=== PATIENT | female | born 1995 | race Two or more races ===

== ENCOUNTER 2021-03-30 18:37 | Emergency (ER) | payer OTHER ==
[~2021-03-30] VITALS: Ht 165.1 cm; Wt 56.8 kg
[2021-03-30] MEDS ORDERED: ONDANSETRON 4MG ODT 4TABLET STARTPACK. PO ONE (19:39)
--- NOTE | 2021-03-30 19:59 | PHYS DOC ---
Past History Past Surgical History: No Surgical History (RICKY FRANKLIN APRN) Alcohol Use: Rarely (RICKY FRANKLIN APRN) General Adult EDM: Chief Complaint: VAGINAL PROBLEM HPI: HPI: Patient is a 25-year-old female who presents with lower abdominal pain. "We had sex earlier and afterwards I felt like someone had taken a hot iron and shoved it in my lower stomach up to my ribs". "I had a miscarriage 2 weeks ago". Denies bleeding, discharge. Patient states "I called EMS because the pain was not stopping". EMS gave 4 mg of Zofran for nausea. Patient denies taking anything for pain prior to arrival. (RICKY FRANKLIN APRN) Review of Systems: Review of Systems: Constitutional: Denies fever or chills Eyes: Denies change in visual acuity HENT: Denies nasal congestion or sore throat Respiratory: Denies cough or shortness of breath Cardiovascular: Denies chest pain or edema GI: Reports lower abdominal pain, nausea. Denies vomiting, bloody stools or diarrhea : Denies dysuria. Denies discharge or odor. Denies vaginal bleeding. Musculoskeletal: Denies back pain or joint pain Integument: Denies rash Neurologic: Denies headache, focal weakness or sensory changes Endocrine: Denies polyuria or polydipsia Lymphatic: Denies swollen glands Psychiatric: Denies depression or anxiety (RICKY FRANKLIN APRN) Allergies: Allergies: Allergies Coded Allergies Type Severity Reaction Last Updated Verified No Known Drug Allergies 03/30/21 No (RICKY FRANKLIN APRN) Physical Exam: PE: Constitutional: Well developed, well nourished, no acute distress, non-toxic michael earance. [] HENT: Normocephalic, atraumatic, bilateral external ears normal, oropharynx moist, no oral exudates, nose normal. [] Eyes: PERRLA, EOMI, conjunctiva normal, no discharge. [] Neck: Normal range of motion, no tenderness, supple, no stridor. [] Cardiovascular:Heart rate regular rhythm, no murmur [] Lungs & Thorax: Bilateral breath sounds clear to auscultation [] Abdomen: Bowel sounds normal, soft, lower abdominal tenderness Skin: Warm, dry, no erythema, no rash. [] Back: No tenderness, no CVA tenderness. [] Extremities: No tenderness, no cyanosis, no clubbing, ROM intact, no edema. [] Neurologic: Alert and oriented X 3, normal motor function, normal sensory funct ion, no focal deficits noted. [] Psychologic: Affect normal, judgement normal, mood normal. [] (RICKY FRANKLIN APRN) Current Patient Data: Vital Signs: Vital Signs Date Time Temp Pulse Resp B/P (MAP) Pulse Ox O2 Delivery O2 Flow Rate FiO2 03/30/21 18:39 98.2 72 16 123/78 100 Room Air (RICKY FRANKLIN APRN) EKG: EKG: [] (RICKY FRANKLIN APRN) Radiology/Procedures: Radiology/Procedures: []EXAM: Abdomen and pelvis CT without intravenous contrast. HISTORY: Pain. TECHNIQUE: Computed tomographic images of the abdomen and pelvis were obtained without contrast. Multiplanar reformatting was performed. *One or more of the following individualized dose reduction techniques were utilized for this examination: 1. Automated exposure control. 2. Adjustment of the mA and/or kV according to patient size. 3. Use of iterative reconstruction technique. COMPARISON: None. FINDINGS: Evaluation of the lower thorax demonstrates groundglass opacity within the posterior dependent portions of both lower lobes likely due to atelectasis. There is no consolidation, pleural effusion or pneumothorax. The heart is normal in size. No hepatic lesion is seen. The gallbladder, pancreas, spleen, adrenal glands and kidneys are unremarkable. There is no appendicitis. There is no bowel obstruction. There is no abnormal bowel wall thickening. The uterus is unremarkable. There are bilateral ovarian follicles and there is a small amount of pelvic free fluid. There is a suspected dominant left ovarian follicle, difficult to measure and absence of contrast. There is fluid within the vagina. The bladder is unremarkable. The aorta is normal in caliber. There are prominent lymph nodes throughout the root of mesentery and pericecal distribution. This can be physiologic in a patient of this age. IMPRESSION: 1. No convincing acute abdominal or pelvic finding. 2. Suspected radiology dominant left ovarian follicle, difficult to measure in the absence of contrast. There is also a small physiologic amount of pelvic free fluid. Electronically signed by: Samara Li MD (03/30/2021 8:38 PM) [facility] (RICKY FRANKLIN APRN) Heart Score: C/O Chest Pain: No Risk Factors: Risk Factors: DM, Current or recent (<one month) smoker, HTN, HLP, family history of CAD, obesity. Risk Scores: Score 0 - 3: 2.5% MACE over next 6 weeks - Discharge Home Score 4 - 6: 20.3% MACE over next 6 weeks - Admit for Clinical Observation Score 7 - 10: 72.7% MACE over next 6 weeks - Early Invasive Strategies (RICKY FRANKLIN APRN) Course & Med Decision Making: Course & Med Decision Making Pertinent Labs and Imaging studies reviewed. (See chart for details) [] 25-year-old female presents with lower abdominal pain shot up to her bellybutton. Patient reports that she had a miscarriage 2 weeks ago. Patient had sex this afternoon and that is when the pain started. Patient reports taking a bath and pain not subsiding. Patient called EMS. Patient is denying vaginal discharge, bleeding, odor. Patient was given Zofran from EMS. Patient is reporting pain. Patient given 5/[address] of abdomen and pelvis ordered. Patient is hemodynamically stable. CT of abdomen pelvis is negative for any acute abnormalities. On reassessment patient states that her pain is under control denies nausea. Instructed patient to follow-up with HEALTHCARE EDUCATOR for further management. Patient sent with the CT report. Patient is hemodynamically stable on discharge. Patient's impression of active discharge plan. (RICKY FRANKLIN APRN) Dragon Disclaimer: Dragon Disclaimer: This electronic medical record was generated, in whole or in part, using a voice recognition dictation system. (RICKY FRANKLIN APRN) Attending Co-Sign The patient was seen and interviewed as well as examined at the bedside. The chart was reviewed. The case was discussed. Agree with the plan of care. (JEROMY CUEVAS DO) Departure Departure: Impression: Primary Impression: Lower abdominal pain Disposition: 01 HOME / SELF CARE / HOMELESS Condition: STABLE Referrals: PCP,ANGELINA (PCP) Patient Instructions: Abdominal Pain, [id number] Additional Instructions: You were seen in the emergency room for lower abdominal pain. You were given hydrocodone and Zofran in the ED. CT of your abdomen and pelvis was ordered which was negative for any acute abnormalities. Please make an appointment with your HEALTHCARE EDUCATOR for a follow-up appointment for further testing and management. Ibuprofen and Tylenol at home for discomfort. Return to emergency room with worsening symptoms or concerns EMERGENCY DEPARTMENT GENERAL DISCHARGE INSTRUCTIONS Thank you for coming to [facility] (ED) today and trusting us with you care. We trust that you had a positivie experience in our Emergency Department. If you wish to speak to the department management, you may call the director at [phone]. YOUR FOLLOW UP INSTRUCTIONS ARE FOLLOWS: 1. Do you have a private Doctor? If you do not have a private doctor, please ask for a resource list of physicians or clinics that may be able to assist you with follow up care. 2. The Emergency Physician has interpreted your x-rays. The X-Ray specialist will also review them. If there is a change in the findings, you will be notified in 48 hours when at all possible. 3. A lab test or culture has been done, your results will be reviewed and you will be notified if you need a change in treatment. ADDITIONAL INSTRUCTIONS AND INFORMATION: 1. Your care today has been supervised by a physician who is specially trained in emergency care. Many problems require more than one evaluation for a complete diagnosis and treatment. We recommend that you schedule your follow up appointment as recommended to ensure complete treatment of you illness or injury. If you are unable to obtain follow up care and continue to have a problem, or if your condition worsens, we recommend that you return to the ED. 2. We are not able to safely determine your condition over the phone nor are we able to give sound medical advice over the phone. For these safety reasons, if you call for medical advice we will ask you to come to the ED for further evaluation. 3. If you have any questions regarding these discharge instructions please call the ED at [phone]. SAFETY INFORMATION: In the interest of safety, wellness, and injury prevention; we encourage you to wear your sealbelt, if you smoke; quite smoking, and we encourage family to use a protective helmet for bicycling and other sporting events that present an increased risk for head injury. IF YOUR SYMPTOMS WORSEN OR NEW SYMPTOMS DEVELOP, OR YOU HAVE CONCERNS ABOUT YOUR CONDITION; OR IF YOUR CONDITION WORSENS WHILE YOU ARE WAITING FOR YOUR FOLLOW UP APPOINTMENT; EITHER CONTACT YOUR PRIMARY CARE DOCTOR, THE PHYSICIAN WHOSE NAME AND NUMBER YOU WERE GIVEN, OR RETURN TO THE ED IMMEDIATELY. RICKY FRANKLIN APRN Mar 30, 2021 19:59 JEROMY CUEVAS DO Mar 31, 2021 13:30
[2021-03-30] MEDS ORDERED: HYDROcodone/APAP 5/325MG 1 TAB TABLET PO ONE (20:00)
[2021-03-30] MEDS ORDERED: ONDANSETRON ODT 4 MG TAB.RAPDIS PO ONE (20:15)
[2021-03-30 20:41] VITALS: BP 139/76
--- NOTE | 2021-03-30 20:41 | RAD ---
EXAM: Abdomen and pelvis CT without intravenous contrast. HISTORY: Pain. TECHNIQUE: Computed tomographic images of the abdomen and pelvis were obtained without contrast. Mult iplanar reformatting was performed. *One or more of the following individualized dose reduction techniques were utilized for this examina tion: 1. Automated exposure control. 2. Adjustment of the mA and/or kV according to patient size. 3. Use of iterative reconstruction technique. COMPARISON: None. FINDINGS: Evaluation of the lower thorax demonstrates groundglass opacity within the posterior depend ent portions of both lower lobes likely due to atelectasis. There is no consolidation, pleural effusi on or pneumothorax. The heart is normal in size. No hepatic lesion is seen. The gallbladder, pancreas , spleen, adrenal glands and kidneys are unremarkable. There is no appendicitis. There is no bowel obstruction. There is no abnormal bowel wall thickening. The uterus is unremarkable. There are bilateral ovarian follicles and there is a small amount of pelv ic free fluid. There is a suspected dominant left ovarian follicle, difficult to measure and absence of contrast. There is fluid within the vagina. The bladder is unremarkable. The aorta is normal in caliber. There are prominent lymph nodes throughout the root of mesentery and pericecal distribution. This can be physiologic in a patient of this age. IMPRESSION: 1. No convincing acute abdominal or pelvic finding. 2. Suspected radiology dominant left ovarian follicle, difficult to measure in the absence of contras t. There is also a small physiologic amount of pelvic free fluid. Electronically signed by: Samara Li MD (03/30/2021 8:38 PM) [facility]
== END 2021-03-30 21:05 | disposition home or self-care (01) ==
LOC: ER 18:37
DX: R10.30 Lower abdominal pain, unspecified (principal)
CPT/HCPCS: 74176; 99284; Q0162

== ENCOUNTER → 2021-05-18 | Emergency (ER) | payer OTHER ==
[~2021-05-18] MED LIST: CEPH500T PO; CEPHALEXIN 250 MG CAPSULE PO ONE; IV NORMAL SALINE 1,000ML 1,000 ML IV ONE
--- NOTE | 2021-05-18 19:46 | PHYS DOC ---
Past History Past Surgical History: No Surgical History (NEGRITO BLANCHARD APRN) Alcohol Use: Rarely (NEGRITO BLANCHARD APRN) General Adult EDM: Chief Complaint: VAGINAL PROBLEM HPI: HPI: Patient is a 25-year-old female who presents to the ER with vaginal bleeding and . Patient states that she is approximately 6 weeks . LMP:. Patient is with 3 miscarriages. Patient states that she has had light vaginal spotting x2 days, this morning she had some cramping but that resolved. She states that 1 hour ago she started having heavier bright red bleeding. No clots. No recent intercourse. Patient denies any pain. Patient also denies nausea, vomiting, lightheadedness. She is not saturating any pads. Her OB is Dr. Muller. (NEGRITO BLANCHARD APRN) Review of Systems: Review of Systems: 14 body systems of the review of systems have been reviewed. See HPI for pertinent positive and negative responses, otherwise all other systems are negative, nonpertinent or noncontributory (NEGRITO BLANCHARD APRN) Current Medications: Current Meds: Current Medications Medications (Trade) Dose Ordered Sig/Adrián Start Time Stop Time Status Last Admin Dose Admin Sodium Chloride 1,000 ml @ 1,000 mls/hr 1X ONCE 05/18/21 19:15 05/18/21 20:14 (NEGRITO BLANCHARD APRN) Allergies: Allergies: Allergies Coded Allergies Type Severity Reaction Last Updated Verified No Known Drug Allergies 03/30/21 No (NEGRITO BLANCHARD APRN) Physical Exam: PE: Constitutional: Well developed, well nourished, no acute distress, non-toxic appearance. [] HENT: Normocephalic, atraumatic, bilateral external ears normal, oropharynx moist, no oral exudates, nose normal. [] Eyes: PERRL, EOMI, conjunctiva normal, no discharge. [] Neck: Normal range of motion, no stridor Cardiovascular:Heart rate regular rhythm, no murmur [] Lungs & Thorax: Bilateral breath sounds clear to auscultation [] Abdomen: Bowel sounds normal, soft, no tenderness, no masses, no pulsatile masses. [] Skin: Warm, dry, no erythema, no rash. [] Back: Normal range of motion Extremities: No tenderness, no cyanosis, no clubbing, ROM intact, no edema. [] Neurologic: Alert and oriented X 3, normal motor function, normal sensory function, no focal deficits noted. [] Psychologic: Affect normal, judgement normal, mood normal. [] (NEGRITO BLANCHARD APRN) Current Patient Data: Labs: Laboratory Tests Test 05/18/21 20:50 05/18/21 21:10 05/18/21 21:33 White Blood Count 3.9 x10^3/uL Red Blood Count 3.86 x10^6/uL Hemoglobin 11.4 g/dL Hematocrit 34.9 % Mean Corpuscular Volume 90 fL Mean Corpuscular Hemoglobin 29 pg Mean Corpuscular Hemoglobin Concent 33 g/dL Red Cell Distribution Width 13.7 % Platelet Count 234 x10^3/uL Neutrophils (%) (Auto) 49 % Lymphocytes (%) (Auto) 36 % Monocytes (%) (Auto) 13 % Eosinophils (%) (Auto) 2 % Basophils (%) (Auto) 0 % Neutrophils # (Auto) 1.9 x10^3uL Lymphocytes # (Auto) 1.4 x10^3/uL Monocytes # (Auto) 0.5 x10^3/uL Eosinophils # (Auto) 0.1 x10^3/uL Basophils # (Auto) 0.0 x10^3/uL Maternal Serum HCG Beta Subunit 55 mIU/mL Sodium Level 138 mmol/L Potassium Level 3.7 mmol/L Chloride Level 102 mmol/L Carbon Dioxide Level 27 mmol/L Anion Gap 9 Blood Urea Nitrogen 19 mg/dL Creatinine 0.7 mg/dL Estimated GFR (Cockcroft-Gault) 102.8 BUN/Creatinine Ratio 27 Glucose Level 83 mg/dL Calcium Level 8.9 mg/dL Total Bilirubin 0.2 mg/dL Aspartate Amino Transf (AST/SGOT) 34 U/L Alanine Aminotransferase (ALT/SGPT) 34 U/L Alkaline Phosphatase 64 U/L Total Protein 8.7 g/dL Albumin 3.8 g/dL Albumin/Globulin Ratio 0.8 Urine Collection Type Unknown Urine Color Yellow Urine Clarity Hazy Urine pH 6.0 Urine Specific [place] 1.015 Urine Protein Neg Urine Glucose (UA) Neg mg/dL Urine Ketones (Stick) Neg mg/dL Urine Blood Large Urine Nitrite Neg Urine Bilirubin Neg Urine Urobilinogen Dipstick 0.2 mg/dL Urine Leukocyte Esterase Small Urine RBC 3-5 /HPF Urine WBC 5-10 /HPF Urine Squamous Epithelial Cells Mod /LPF Urine Bacteria Mod /HPF Bedside Urine HCG, Qualitative hcg positive Current Medications Medications (Trade) Dose Ordered Sig/Adrián Route PRN Reason Start Time Stop Time Status Last Admin Dose Admin Sodium Chloride 1,000 ml @ 1,000 mls/hr 1X ONCE IV 05/18/21 19:15 05/18/21 20:14 DC 05/18/21 19:15 Laboratory Tests Test 05/18/21 20:50 05/18/21 21:33 White Blood Count 3.9 x10^3/uL Red Blood Count 3.86 x10^6/uL Hemoglobin 11.4 g/dL Hematocrit 34.9 % Mean Corpuscular Volume 90 fL Mean Corpuscular Hemoglobin 29 pg Mean Corpuscular Hemoglobin Concent 33 g/dL Red Cell Distribution Width 13.7 % Platelet Count 234 x10^3/uL Neutrophils (%) (Auto) 49 % Lymphocytes (%) (Auto) 36 % Monocytes (%) (Auto) 13 % Eosinophils (%) (Auto) 2 % Basophils (%) (Auto) 0 % Neutrophils # (Auto) 1.9 x10^3uL Lymphocytes # (Auto) 1.4 x10^3/uL Monocytes # (Auto) 0.5 x10^3/uL Eosinophils # (Auto) 0.1 x10^3/uL Basophils # (Auto) 0.0 x10^3/uL Maternal Serum HCG Beta Subunit 55 mIU/mL Sodium Level 138 mmol/L Potassium Level 3.7 mmol/L Chloride Level 102 mmol/L Carbon Dioxide Level 27 mmol/L Anion Gap 9 Blood Urea Nitrogen 19 mg/dL Creatinine 0.7 mg/dL Estimated GFR (Cockcroft-Gault) 102.8 BUN/Creatinine Ratio 27 Glucose Level 83 mg/dL Calcium Level 8.9 mg/dL Total Bilirubin 0.2 mg/dL Aspartate Amino Transf (AST/SGOT) 34 U/L Alanine Aminotransferase (ALT/SGPT) 34 U/L Alkaline Phosphatase 64 U/L Total Protein 8.7 g/dL Albumin 3.8 g/dL Albumin/Globulin Ratio 0.8 Bedside Urine HCG, Qualitative hcg positive Current Medications Medications (Trade) Dose Ordered Sig/Adrián Route PRN Reason Start Time Stop Time Status Last Admin Dose Admin Sodium Chloride 1,000 ml @ 1,000 mls/hr 1X ONCE IV 05/18/21 19:15 05/18/21 20:14 DC 05/18/21 19:15 (NEGRITO BLANCHARD APRN) EKG: EKG: [] (NEGRITO BLANCHARD APRN) Radiology/Procedures: Radiology/Procedures: [] (NEGRITO BLANCHARD APRN) Heart Score: C/O Chest Pain: No Risk Factors: Risk Factors: DM, Current or recent (<one month) smoker, HTN, HLP, family history of CAD, obesity. Risk Scores: Score 0 - 3: 2.5% MACE over next 6 weeks - Discharge Home Score 4 - 6: 20.3% MACE over next 6 weeks - Admit for Clinical Observation Score 7 - 10: 72.7% MACE over next 6 weeks - Early Invasive Strategies (NEGRITO BLANCHARD APRN) Course & Med Decision Making: Course & Med Decision Making Pertinent Labs and Imaging studies reviewed. (See chart for details) [] Patient is a 25-year-old female who presents to the ER for bright red vaginal bleeding in . Patient states that she is approximately 6 weeks . Work-up in the ER consisted of blood work, urinalysis and pelvic exam. Lab work is unremarkable. Urinalysis showed urinary tract infection. Patient be treated with an antibiotic, given first dose in the ER. Patient's urine test was positive. Her beta hCG was 55. No need for pelvic ultrasound as patient has no pain, vitals are stable, no excessive vaginal bleeding, beta hcg 55. Patient does not have any pain or nausea or vomiting. Patient should follow-up with her THERMOSPRAY OPERATOR tomorrow regarding her ER visit to have her beta hCG levels checked. Patient is Rh+ and does not require RhoGam. Patient's vital signs are stable. I discussed with patient all findings and diagnostic testing as well as the need to follow-up with PCP for further evaluation and treatment or return to the ER if any new or worsening symptoms. Strict return precautions were also discussed at length. Patient voiced understanding and agreement with the plan. Patient is hemodynamically stable at the time of disposition. (NEGRITO BLANCHARD APRN) Course & Med Decision Making Did not see or evaluate patient. Did not discuss patient with BINDERY TECHNICIAN. Agree with BINDERY TECHNICIAN's work-up and disposition per note (CONDRAJANICE Disclaimer: Naye Disclaimer: This electronic medical record was generated, in whole or in part, using a voice recognition dictation system. (NEGRITO BLANCHARD APRN) Departure Departure: Impression: Primary Impression: Vaginal bleeding during Disposition: HOME / SELF CARE / HOMELESS Condition: GOOD Referrals: PCP,NO (PCP) Patient Instructions: Vaginal Bleeding During , First Trimester Additional Instructions: You were seen in the ER today for vaginal bleeding and . Your electrolytes are within normal limits and labs that could indicate excessive blood loss were within normal limits. Your beta hCG level was 55. You will need to follow-up with your THERMOSPRAY OPERATOR within 2 days regarding your ER visit to have your beta hCG levels checked. You were noted to have a urinary tract infection. This will be treated with an antibiotic. You were given your first dose in the ER. Please take this as directed at home. Increase your fluids and rest. Please return to the ER if you develop severe abdominal pain, intractable nausea or vomiting, high fevers refractory to treatment or severe vaginal bleeding where you are saturating more than 1 pad an hour. EMERGENCY DEPARTMENT GENERAL DISCHARGE INSTRUCTIONS Thank you for coming to [facility] (ED) today and trusting us with you care. We trust that you had a positivie experience in our Emergency Department. If you wish to speak to the department management, you may call the director at [phone]. YOUR FOLLOW UP INSTRUCTIONS ARE FOLLOWS: 1. Do you have a private Doctor? If you do not have a private doctor, please ask for a resource list of physicians or clinics that may be able to assist you with follow up care. 2. The Emergency Physician has interpreted your x-rays. The X-Ray specialist will also review them. If there is a change in the findings, you will be notified in 48 hours when at all possible. 3. A lab test or culture has been done, your results will be reviewed and you will be notified if you need a change in treatment. ADDITIONAL INSTRUCTIONS AND INFORMATION: 1. Your care today has been supervised by a physician who is specially trained in emergency care. Many problems require more than one evaluation for a complete diagnosis and treatment. We recommend that you schedule your follow up appointment as recommended to ensure complete treatment of you illness or injury. If you are unable to obtain follow up care and continue to have a problem, or if your condition worsens, we recommend that you return to the ED. 2. We are not able to safely determine your condition over the phone nor are we able to give sound medical advice over the phone. For these safety reasons, if you call for medical advice we will ask you to come to the ED for further evaluation. 3. If you have any questions regarding these discharge instructions please call the ED at [phone]. SAFETY INFORMATION: In the interest of safety, wellness, and injury prevention; we encourage you to wear your sealbelt, if you smoke; quite smoking, and we encourage family to use a protective helmet for bicycling and other sporting events that present an increased risk for head injury. IF YOUR SYMPTOMS WORSEN OR NEW SYMPTOMS DEVELOP, OR YOU HAVE CONCERNS ABOUT YOUR CONDITION; OR IF YOUR CONDITION WORSENS WHILE YOU ARE WAITING FOR YOUR FOLLOW UP APPOINTMENT; EITHER CONTACT YOUR PRIMARY CARE DOCTOR, THE PHYSICIAN WHOSE NAME AND NUMBER YOU WERE GIVEN, OR RETURN TO THE ED IMMEDIATELY. Scripts Cephalexin (CEPHALEXIN) 500 Mg Tablet 1 TAB PO TID for UTI for 5 Days, #15 TAB 0 Refills Prov: NEGRITO BLANCHARD APRN 05/18/21 NEGRITO BLANCHARD APRN May 18, 2021 19:46 JANICE LYONS MD May 18, 2021 22:36
[2021-05-18 21:16] LABS: BASO % 0 % (0-3); EOS # 0.1 x10^3/uL (0.0-0.7); EOS % 2 % (0-3); HEMATOCRIT 34.9 % (36.0-47.0); HEMOGLOBIN 11.4 g/dL (12.0-15.5); LYMPH # 1.4 x10^3/uL (1.0-4.8); LYMPH % 36 % (24-48); MEAN CORPUSCULAR HEMOGLOBIN 29 pg (25-35); MEAN CORPUSCULAR HGB CONC 33 g/dL (31-37); MEAN CORPUSCULAR VOLUME 90 fL (79-100); MONO # 0.5 x10^3/uL (0.0-1.1); MONO % 13 % (0-9); NEUT # 1.9 x10^3uL (1.8-7.7); NEUT % 49 % (31-73); PLATELET COUNT 234 x10^3/uL (140-400); RED BLOOD COUNT 3.86 x10^6/uL (3.50-5.40); RED CELL DISTRIBUTION WIDTH 13.7 % (11.5-14.5); WHITE BLOOD COUNT 3.9 x10^3/uL (4.0-11.0)
[2021-05-18 21:23] LABS: CALCIUM 8.9 mg/dL (8.5-10.1); CREATININE 0.7 mg/dL (0.6-1.0); GFR 102.8; POTASSIUM 3.7 mmol/L (3.5-5.1)
[2021-05-18 21:28] LABS: ALBUMIN 3.8 g/dL (3.4-5.0); ALBUMIN/GLOBULIN RATIO 0.8 (1.0-1.7); TOTAL BILIRUBIN 0.2 mg/dL (0.2-1.0); TOTAL PROTEIN 8.7 g/dL (6.4-8.2)
[2021-05-18 22:03] LABS: BACTERIA,URINE MOD /HPF (0-FEW); BILIRUBIN,URINE NEG (NEG); CLARITY,URINE HAZY; COLOR,URINE YELLOW; GLUCOSE,URINE NEG (NEG); NITRITE,URINE NEG (NEG); UROBILINOGEN,URINE 0.2 mg/dL (0.2 mg/dL)
[2021-05-18 22:04] LABS: SQUAMOUS EPITHELIAL CELL,UR MOD /LPF
== END | disposition home or self-care (01) ==
LOC: ER 18:41
DX: O46.91 Antepartum hemorrhage, unspecified, first trimester (principal); Z3A.01 Less than 8 weeks gestation of pregnancy
CPT/HCPCS: 36415; 80053; 81001; 81025; 84702; 85025; 86900; 86901; 87086; 96360; 99283; J7030; 87077; 87186